=== PATIENT | female | born 1980 | race Caucasian/White ===

== ENCOUNTER → 2018-10-21 12:22 | Outpatient (CLI) | payer MEDICAID, SELFPAY ==
--- NOTE | 2018-10-21 | IMM_PTH ---
PATIENT: VANDANA JACK LOC: [facility] U#:[id number] AGE/SX: 45/F ROOM: RE10/21/[address]: Dr. Ruby Watters MD : 1980 BED: DIS: SPEC #: [id number] RECD: 10/23/18 13:56 STATUS: FREDERICK REQ #: [id number] LAINE: 10/21/18 00:[address]: Ruby Watters DEPT: IMMUNOHISTOCHEMISTRY RECD BY: Calli Rodriguez ENTERED: 10/23/18 13:58 SP TYPE: IMMUNO OTHR DR: Dr. Souleymane Oleary, DO Tissues: A - Thyroid gland, NOS Procedures: CK19 (add) GAL-3 (add) HBME (add) CD56 (initial) PHYSICIAN & INSTITUTION [place] [id number] SPECIMEN INFORMATION: Tissue Source: A - Thyroid aspirate Clinical Info: Abnormal thyroid ultrasound Specimen Number: [id number] CPT code: 73879, 14847 x3 METHODOLOGY: Deparaffinized sections of prefer/formalin-fixed tissue or PAP/DQ stained slides are incubated with monoclonal/polyclonal antibodies/oligonucleotide probes. Localization is made via biotin free immunoperoxidase method. Appropriate controls are performed and reacted as expected. Results on target cell population are indicated in the following table: RESULTS: ANTIBODY / CLONE RESULT Block A CD56 (123C3.D5) positive HBME1 (HBME-1) negative CK19 (A53-B/A2.26) negative GAL3 (9C4) negative These tests were developed and their performance characteristics determined by [facility]. They may not have been cleared or approved by the U.[place]. Food and Drug Administration. The FDA has determined that such clearance or approval is not necessary. INTERPRETATION: A. Thyroid aspirate, ultrasound-guided biopsy: Consistent with benign colloid nodule. BEREKET:gurvinder 10/26/18
--- NOTE | 2018-10-21 | FLU_PTH ---
PATIENT: VANDANA JACK [facility] U#:[id number] AGE/SX: 45/F ROOM: RE10/21/[address]: Dr. Ruby Watters MD : 1980 BED: DIS: SPEC #: [id number] RECD: 10/22/18 11:59 STATUS: FREDERICK RERobb #: [id number] LAINE: 10/21/18 00:[address]: Ruby Watters DEPT: CYTOLOGY RECD BY: Julio Peterson ENTERED: 10/22/18 13:11 SP TYPE: Fluid OTHR DR: Dr. Souleymane Oleary, DO Tissues: A - Thyroid gland, NOS B - Thyroid gland, NOS Procedures: Special Stain Group II Surgery Specimen Level IV Cytospin Fluid Cytology Other HEADER OPERATION: Ultrasound-guided right thyroid biopsy PRE-OP DIAGNOSIS: Abnormal thyroid ultrasound TISSUE SUBMITTED: A - Thyroid aspirate for cytology, B - Thyroid slides x8 DIAGNOSIS CYTOLOGY A. Thyroid aspirate fluid for cytology (cytospin and cell block): Consistent with benign colloid nodule. See comment. B. Thyroid nodule, ultrasound-guided FNA (smears): Consistent with benign colloid nodule. Adequate for evaluation. SJ:rg 10/23/18 COMMENT A. Immunohistochemistry ([id number]) supports the above diagnosis. Case has been reviewed in consultation with Dr. Centeno who concurs with the above diagnosis. IDC:AM CYTOLOGY STUDY Slides are reviewed. CYTOLOGY GROSS A - Received is 27 ml of cloudy colorless fluid labeled with the patient's name and and designated per the requisition as thyroid. Submitted for cytology preparation including cell block. B - Received are eight smears labeled with the patient's name and designated per the requisition as thyroid. Submitted for staining. / 10/22/18 TC:5 CPT: 69184, 27074, 56769
== END ==
PROVIDERS: Family Provider Student in an Organized Health Care Education/Training Program; PCP Student in an Organized Health Care Education/Training Program; Referring Provider Surgery; Visit Provider Surgery
DX: R93.89 Abnormal findings on diagnostic imaging of other specified body structures (principal)
CPT/HCPCS: 88108; 88161; 88305; 88313; 88341; 88342

== ENCOUNTER 2020-04-19 16:02 | Emergency (ER) | payer MEDICAID, SELFPAY ==
[2020-04-19 16:05] VITALS: BP 149/97; PULSE 98; RESP 18; TEMP 37.1; O2SAT 97; BMI 37.1
--- NOTE | 2020-04-19 16:13 | RAD_ITS ---
STUDY: X-RAY - LEFT KNEE REASON FOR EXAM: Female, 39 years old. CAUGHT LEG IN SIDE OF RECLINER. PAIN ALL OVER KNEE. PAINFUL TO BEND TECHNIQUE: 4 view(s) of the knee. COMPARISON: None. FINDINGS: Normal visualized distal femur. Normal visualized proximal tibia and fibula. Normal proximal tibiofibular articulation. There is no demonstrated fracture. There is mild degenerative arthrosis of the medial femorotibial compartment. There is mild degenerative arthrosis of the lateral femorotibial compartment. Normal patellofemoral articulation. There is no demonstrated joint effusion. The soft tissue structures are unremarkable. RAD/Knee 4 or More Views IMPRESSION: Normally located knee without fracture. Negative for hemarthrosis. Mild degenerative changes of the medial and lateral compartments of the knee. Electronically Signed: Paula Marquez MD at 16:54 EDT , Service support ,
--- NOTE | 2020-04-19 17:15 | ED.DCSUM_ITS ---
History of Present Illness Chief Complaint: Lower Extremity Injury Detail of Chief Complaint: Left knee pain Informant: Patient Onset: Today Current Severity: Severe Maximum Severity: Severe Narrative: Patient present secondary left knee pain. She does have a history of previous meniscus surgery for [address] Fior Barr. She states she was sitting in a recliner. She had moved her feet to the side to raise the foot rest. When she went to raise her left leg from the floor onto the foot rest she felt severe pain in her left knee. She has not been able to weight-bear since that time. - Past Medical History (1) Anxiety and depression Status: Chronic (2) Fibromyalgia Status: Chronic Past Medical History - Allergies and Home Meds Allergies/Adverse Reactions: Allergies No Known Allergies Allergy (Verified 04/19/20 16:04) Primary Care Physician: Remberto Schwab DO [STAFF PHYSICIAN] - As soon as possible Surgical History: - - Meniscus repair Smoking Status: Current every day smoker Review of Systems General: Denies: Chills, Fever Eyes: Denies: Visual changes - bilaterally ENT: Denies: Bilateral ear pain Cardiovascular: Denies: Chest pain Respiratory: Denies: Dyspnea, Cough Gastrointestinal: Denies: Abdominal pain, Vomiting, Diarrhea Musculoskeletal: Reports: Extremity Pain Skin: Denies: Rash, Wounds Neurological: Denies: Parasthesia Hematologic: Denies: Easy bruising, Easy bleeding Allergy: Denies: Uticaria Physical Exam Vital Signs/Narrative: Vital Signs Temp Pulse Resp BP Pulse Ox 04/19/20 16:05 98.8 F 98 18 149/97 H 97 Inital Vital Signs reviewed: Yes General: Well nourished, Well developed Head: Normocephalic ENT: Moist mucous membranes Neck: Supple Cardiovascular: Regular rate, Regular rhythm Respiratory: No distress, CTA bilaterally Abdomen: Soft, Nontender Extremities: - - Diffuse tenderness throughout the anterior knee. Minimal edema. No erythema or warmth. Decreased range of motion secondary to pain. She is able to raise her foot off the bed. Strong distal pulses are noted. Neurological: Alert, Oriented x3 Psychological: Tearful Diagnostic/Tx/Re-eval Impressions Knee X-Ray 04/19/20 16:13 IMPRESSION: Normally located knee without fracture. Negative for hemarthrosis. Mild degenerative changes of the medial and lateral compartments of the knee. Electronically Signed: Paula Marquez MD at 16:54 EDT , Service support , 04/19/20 16:13 Knee 4 or More Views [RAD] Stat - Medical Decision Making Patient was given oxycodone here for pain. X-ray results are discussed with her. Sky wrap is applied and patient is given crutches. She is known to Dr. Schwab and will follow up with him. ED Disposition - Plan for ED Patient: Disposition: Home or Assisted Living Diagnosis: Knee sprain Instructions: ED Sprain Knee Prescriptions: Oxycodone HCl/Acetaminophen [Percocet 5/325] 1 tab PO Q6H PRN PRN 5 Days #20 tab PRN Reason: Pain Score 4-10/10 Transmission Status: Received by [id number] Referrals: Remberto Schwab DO [STAFF PHYSICIAN] - As soon as possible
[2020-04-19] MEDS: oxyCODONE 5 MG Tablet 10 MG PO (17:38)
== END 2020-04-19 17:58 | disposition home or self-care (01) ==
PROVIDERS: Emergency Provider Emergency Medicine; PCP Student in an Organized Health Care Education/Training Program
DX: S83.92XA Sprain of unspecified site of left knee, initial encounter (principal); X58.XXXA Exposure to other specified factors, initial encounter; Y93.9 Activity, unspecified; Y92.9 Unspecified place or not applicable; F41.8 Other specified anxiety disorders; M79.7 Fibromyalgia; Z79.899 Other long term (current) drug therapy; F17.200 Nicotine dependence, unspecified, uncomplicated
CPT/HCPCS: 73564; 99285

== ENCOUNTER 2020-09-07 09:58 | Emergency (ER) | payer MEDICAID, SELFPAY ==
[2020-09-07 09:59] VITALS: BP 206/112; PULSE 82; RESP 16; TEMP 36.1; O2SAT 99; BMI 40.3
--- NOTE | 2020-09-07 10:15 | RAD_ITS ---
STUDY: X-RAY CHEST REASON FOR EXAM: Female, 40 years old. CHEST PAIN TECHNIQUE: Single AP portable view of the chest. COMPARISON: Comparison is made with prior study 03/15/2014. FINDINGS: EKG electrodes are seen. The lungs are clear and expanded. There is no demonstrated pleural abnormality. Normal size heart. Normal mediastinum and concha. Normal visualized pulmonary arteries. Normal visualized aortic arch and descending thoracic aorta. Normal visualized thoracic spine. Normal visualized ribs, clavicles, and shoulders. There is no demonstrated abnormality of the visualized soft tissue structures of the upper abdomen. RAD/Chest 1 View (Portable) IMPRESSION: Normal x-ray examination of the chest. Electronically Signed: Ethan Mo MD at 10:46 EST , Service support ,
--- NOTE | 2020-09-07 10:15 | EKG12_ITS ---
Test Reason : CP Blood Pressure : / mmHG Vent. Rate : 077 BPM Atrial Rate : 077 BPM P-R Int : 124 ms QRS Dur : 090 ms QT Int : 372 ms P-R-T Axes : 043 059 028 degrees QTc Int : 420 ms Normal sinus rhythm Normal ECG Confirmed by LACHO KINCAID, VERONICA ([id number]), movie editor MARTHA PATINO ([id number]) on 09/08/2020 11:16:10 AM Referred By: PC Confirmed By:VERONICA MONK MD
[2020-09-07 10:21] VITALS: BP 169/90; PULSE 69; RESP 16; O2SAT 100
--- NOTE | 2020-09-07 10:28 | ED.DCSUM_ITS ---
- ER Visit Summary Date of Service: 09/07/20 Chief Complaint: [Chest pain] History of Present Illness: The patient is a 40 F [presents to the emergency department with chest pain that she has had off-and-on for the last 2 months. Patient states that she has been using a energy pill called blackjack. Viktoriya baez has noticed that at times after taking this energy pill she developed chest pressure like an elephant sitting on her chest with radiation of the discomfort into her neck. She denies any significant shortness of breath. Patient also notices that at times with exertion she will have similar symptoms. The symptoms are not always exertional. Patient states that symptoms last a few seconds and then resolved. Patient is prediabetic and has history of high cholesterol. Patient not currently medicated for blood pressure but states that her blood pressures have been elevated at times. Patient's mother has a history of cardiac stents at the age of 52. Patient is a smoker. Patient does have history of anxiety and fibromyalgia as well as high cholesterol and borderline diabetes. No recent travel or surgeries. No PE history. Denies recent illness such as fever or cough. She has not had any COVID-19 exposures.] Physical Examination: [HEENT-PERRLA, EOMI. Cranial nerves II through XII grossly intact. TMs clear. Mucous membranes moist. No adenopathy. Cardiovascular-regular rate and rhythm without murmur or ectopy Lungs-clear to auscultation, chest wall stable without crepitus or subcu emphysema Abdomen-normoactive bowel sounds, soft, nontender, no rebound or rigidity, no peritoneal signs. Extremities-intact ?4, normal range of motion, normal pulses, atraumatic] Test Results: [EKG obtained on arrival shows sinus rhythm with a ventricular rate of 77 bpm with no acute segment changes noted.] CBC with differential is normal. Chemistries normal. D-dimer is 0.31. Troponin is less than 0.015. Chest x-ray interpreted by myself as nothing acute and radiology in agreement. Emergency Department Course and Treatment: [IV line established on arrival. Patient placed on a phototypesetting equipment monitor. Patient had taken aspirin at home and therefore none was given here. Patient remained chest pain-free in the emergency department.] Treatment Plan: [I discussed results with patient and recommended admission for stress testing given that she had a heart score of 3. Patient is adamant that she does not want to be admitted and would prefer to schedule outpatient stress testing. She understands I cannot completely rule out coronary artery disease as the etiology of her symptoms. Shared decision making. I did discuss case with physician covering for her primary care physician who will discuss with her primary care physician Dr. Oleary to see if they want to see the patient in the office or schedule outpatient stress testing.] Disposition: [Discharged home in stable condition. Patient advised to return if worsening pain, increasing shortness of breath, fatigue, or condition should worsen anyway.] Impression: [Chest pain-etiology uncertain] This note was generated with [employer] dictation software. It may contain incorrect words, spelling, and punctuation that were not noted in review of the chart prior to signing ED Disposition - Plan for ED Patient: Referrals: Danette Killian MD [STAFF PHYSICIAN] -
[2020-09-07 10:36] LABS: Absolute Lymphocyte Count 2.46 X10^3/uL (0.83-4.51); Basophil# 0.05 X10^3/uL; Basophil% 0.6 % (0-1); Eosinophil# 0.31 X10^3/uL; Eosinophils% 3.7 % (0-5); Hematocrit 43.7 % (37-47); Hemoglobin 14.3 g/dL (12.0-15.0); Lymphocyte # 2.46 X10^3/ul (4.0); Lymphocyte % 29.6 % (19-41); Mean Corp Hgb Conc 32.7 g/dL (32-36); Mean Corpuscular Hgb 29.1 pg (27.0-32.0); Mean Platelet Vol. 9.8 fl (6.2-12.0); Monocyte# 0.48 X10^3/uL; Monocyte% 5.8 % (0-10); NRBC Flagged by Analyzer 0 % (0-5); Neutrophil # 4.99 X10^3/uL (2.7-7.7); Neutrophil % 59.9 % (47-70); Platelet Count 249 K/mm3 (150-450); RBC Distribution Width CV 13.2 % (11.6-14.6); RBC Distribution Width SD 43.2 fl (35.1-43.9); Red Blood Count 4.91 M/mm3 (4.2-5.4); White Blood Count 8.3 K/mm3 (4.4-11.0)
[2020-09-07 10:49] LABS: D-Dimer Quantitative (DVT/PE) 0.31 FEU/ug/m (0.27-0.49)
[2020-09-07 10:52] LABS: Anion Gap 4 (5-15); BUN 21 mg/dL (7-18); Calcium,Total 8.9 mg/dL (8.5-10.1); Chloride 105 mmol/L (98-107); Creatinine, Serum 0.91 mg/dL (0.55-1.02); EST Glomerular Filtration Rate 72 mL/min (>60); Est Glom Filt Rate - Afr Amer 87 mL/min (>60); Estimated Creatinine Clearance 76.16 ml/min; Glucose 83 mg/dL (74-106); Potassium 3.4 mmol/L (3.5-5.1); Sodium Level 138 mmol/L (136-145)
--- NOTE | 2020-09-07 11:03 | ED.DEP ---
ED Disposition - Plan for ED Patient: Instructions: ED Chest Pain, Uncertain Cause Referrals: Danette Killian MD [STAFF PHYSICIAN] - Souleymane Oleary DO [Primary Care Provider] - As soon as possible
[2020-09-07 11:10] VITALS: BP 147/93; PULSE 66; RESP 18; TEMP 36.1
== END 2020-09-07 11:27 | disposition home or self-care (01) ==
LOC: ED 10:36
PROVIDERS: Emergency Provider Emergency Medicine; PCP Student in an Organized Health Care Education/Training Program
DX: R07.89 Other chest pain (principal); R73.03 Prediabetes; E78.00 Pure hypercholesterolemia, unspecified; M79.7 Fibromyalgia; F41.9 Anxiety disorder, unspecified; Z79.899 Other long term (current) drug therapy; F17.200 Nicotine dependence, unspecified, uncomplicated
CPT/HCPCS: 71045; 80048; 84484; 85025; 85379; 93005; 99284; A4216